=== PATIENT | male | born 1960 | race Caucasian/White ===

== ENCOUNTER 2021-02-10 03:35 | Emergency (ER) | payer MEDICAID ==
[~2021-02-10] VITALS: Ht 193 cm; Wt 57.0 kg
[2021-02-10] MEDS ORDERED: IBUPROFEN 600MG TABLET PO STA (04:15)
[2021-02-10 04:59] LABS: BASOPHILS % 1.1 % (0.0-2.0); EOSINOPHILS % 5.2 % (0.0-5.0); HEMATOCRIT. 38.4 % (42.0-52.0); LYMPHOCYTES % 15.3 % (20.0-50.0); MEAN CORPUSCULAR HEMOGLOBIN 29.3 pg (28.0-32.0); MEAN CORPUSCULAR VOLUME 86.2 fL (80.0-94.0); MEAN PLATELET VOLUME 9.8 fl (7.4-10.4); MONOCYTES % 8.4 % (2.0-8.0); PLATELET 155 x1000/uL (130-400); RED BLOOD CELL COUNT 4.45 mill/uL (4.7-6.1); RED CELL DISTRIBUTION WIDTH 14.6 % (11.6-14.6)
[2021-02-10 05:07] LABS: CHLORIDE 105 mEq/L (98-107)
[2021-02-10] MEDS ORDERED: ASPIRIN 81MG TABLET PO ONE (06:15)
[2021-02-10 15:03] VITALS: BP 171/98
== END 2021-02-10 14:50 | disposition left against medical advice (07) ==
LOC: ER 03:35 → ENRESERV 14:51 → CANBEDREQ 16:14
DX: R07.89 Other chest pain (principal); I10 Essential (primary) hypertension; I25.10 Atherosclerotic heart disease of native coronary artery without angina pectoris; I25.2 Old myocardial infarction; Z90.49 Acquired absence of other specified parts of digestive tract; Z88.1 Allergy status to other antibiotic agents
CPT/HCPCS: 36415; 71045; 80053; 80320; 83880; 84484; 85025; 99285; Z7610; G0480